=== PATIENT | male | born 1945 | race Caucasian/White ===

== ENCOUNTER → 2018-05-18 | Outpatient (CLI) | payer MEDICARE ==
--- NOTE | 2018-05-18 12:19 | REP ---
Chest two views HISTORY: Cough Comparison: None The lungs are clear. The heart is normal in size. The pulmonary vasculature is normal in appearance. Degenerative change is present in the thoracic spine. IMPRESSION: No acute disease. Electronically Signed by Neal Benjamin MD 05/18/2018 12:10 P
== END ==
LOC: M LRY 11:36
PROVIDERS: ATTEND Physician Assistant
DX: R05 Cough (principal)
CPT/HCPCS: 71046; G0463

== ENCOUNTER → 2018-08-30 | Outpatient (REF) | payer MEDICARE ==
[2018-08-30 19:21] LABS: ALBUMIN 3.9 GM/DL (3.2-5.2); ALT/SGPT 23 U/L (12-78); BASO # 0.1 10^3/uL (0.0-0.2); BASO % 0.7 % (0.0-1.0); BILIRUBIN,TOTAL 0.5 MG/DL (0.2-1.0); BLOOD UREA NITROGEN 23 MG/DL (7-18); CARBON DIOXIDE LEVEL 27 MEQ/L (21-32); CHLORIDE LEVEL 106 MEQ/L (98-107); EOS # 0.2 10^3/uL (0.0-0.50); EOS % 2.8 % (0.0-3.0); GLOMERULAR FILTRATION RATE > 60.0 (>42); GLUCOSE, FASTING 93 MG/DL (70-100); HEMATOCRIT 40.4 % (42.0-52.0); HEMOGLOBIN 13.3 g/dl (13.5-17.5); LYMPH # 1.5 10^3/uL (1.5-4.5); LYMPH % 19.9 % (24.0-44.0); MEAN CORPUSCULAR HEMOGLOBIN 31.8 pg (27.0-33.0); MEAN CORPUSCULAR HGB CONC 32.9 g/dl (32.0-36.5); MEAN CORPUSCULAR VOLUME 96.7 fl (80.0-96.0); MONO # 1.1 10^3/uL (0.0-0.8); MONO % 14.3 % (0.0-5.0); NEUTROPHILS # 4.6 10^3/uL (1.8-7.7); PLATELET COUNT, AUTOMATED 229 10^3/uL (150-450); POTASSIUM SERUM 3.9 MEQ/L (3.5-5.1); RED BLOOD COUNT 4.18 10^6/uL (4.30-6.10); SODIUM LEVEL 141 MEQ/L (136-145); TOTAL PROTEIN 7.1 GM/DL (6.4-8.2); WHITE BLOOD COUNT 7.5 10^3/uL (4.0-10.0)
[2018-09-02 00:06] LABS: Lyme Disease IgG/IgM Antibodie <0.91 ISR (0.00-0.90); Lyme Disease IgM Ab Quantitati <0.80 index (0.00-0.79)
== END ==
LOC: M SFHCLERA 10:59
PROVIDERS: ATTEND Physician Assistant
DX: R19.7 Diarrhea, unspecified (principal); S30.860A Insect bite (nonvenomous) of lower back and pelvis, initial encounter; W57.XXXA Bitten or stung by nonvenomous insect and other nonvenomous arthropods, initial encounter; R21 Rash and other nonspecific skin eruption
CPT/HCPCS: 80053; 81002; 85025; 86617; G0463

== ENCOUNTER → 2018-08-31 | Outpatient (REF) | payer MEDICARE | LOC: M SFHCLUC 11:37 | PROVIDERS: ATTEND Physician Assistant | DX: R19.7 Diarrhea, unspecified (principal) ==

== ENCOUNTER → 2020-04-29 | Outpatient (CLI) | payer MEDICARE ==
[~2020-04-29] MED LIST: ASPI81TA26 PO; CLAR10CA3 PO; FLON1SPR NARES; FOLI1TAB11; IRBE150T14; MAPA500T2 PO; METH2.5T48; PANT40TA29; SYST1SOL4 OP
== END ==
LOC: M LABSMTC 11:58
PROVIDERS: ATTEND Anesthesiology
DX: Z01.812 Encounter for preprocedural laboratory examination (principal); Z20.822 Contact with and (suspected) exposure to COVID-19

== ENCOUNTER 2020-05-04 11:24 | Day surgery (SDC) | payer MEDICARE ==
[~2020-05-04] VITALS: Ht 167.6 cm; Wt 95.3 kg
[~2020-05-04 11:24] MED LIST changes: +OFLOXACIN 0.3 % (OCUFLOX) OPTH SOL 5ML OD ONE; +PHENYLEPHRINE 2.5% OPHTH SOL 2ML OD ONE; +PROPARACAINE 0.5% OPHTH SOL 15ML OD ONE; +TROPICAMIDE 1% OPHTH SOLN 2ML OD ONE
[2020-05-04] MEDS ORDERED: CEFUROXIME 1MG/0.1ML INTRACAMERAL INJ As Ordered ONE (11:25)
[2020-05-04] MEDS ORDERED: MIDAZOLAM INJ 2MG/2ML VIAL (J2250 PER 1MG) As Ordered ONE (12:07)
[2020-05-04] MEDS ORDERED: fentaNYL 100 MCG/2 ML INJECTION (J3010) As Ordered ONE (12:07)
[2020-05-04] MEDS ORDERED: DUOVISC (0.50ML VISCOAT/0.55ML PROVISC) OPHTH KIT As Ordered ONE (12:20)
[2020-05-04] MEDS ORDERED: POVIDONE-IODINE 5% OPHTH PREP SOL 30ML As Ordered ONE (12:30)
[2020-05-04] MEDS ORDERED: BSS IRR 500ML/OMIDRIA 4ML IRR BAG (OR ONLY) As Ordered ONE (12:30)
[2020-05-04 12:41] VITALS: BP 127/63
--- NOTE | 2020-05-06 10:23 | RO ---
OPERATIVE NOTE DATE OF OPERATION: 05/04/2020 PREOPERATIVE DIAGNOSIS: 1. Visually significant nuclear sclerotic cataract, right eye. POSTOPERATIVE DIAGNOSIS: 1. Visually significant nuclear sclerotic cataract, right eye. PROCEDURE: 1. Cataract extraction with use of phacoemulsification, and placement of intraocular lens, AU00T0, D 19.0, right eye. SURGEON: Kang Cloud DO ANESTHESIA: Local (Omidria with MAC) COMPLICATIONS: None POSTOPERATIVE CONDITION: Stable INDICATIONS FOR SURGERY: 1. Blurred vision affecting patient's activities of daily living. DESCRIPTION OF PROCEDURE: The patient was seen in the preoperative area and properly identified. The correct operative eye was identified and marked. The patient received topical anesthetic, antibiotics, and topical dilating drops. The patient was then transferred to the operating room. The correct side was re-identified and a time-out was performed. The eye was prepped and draped in a sterile fashion. The eyelids were isolated with Tegaderm tape and the lids were held open with an adjustable speculum. A 1.0mm paracentesis incision was made. Omidria was then injected into the anterior chamber. Viscoelastic was then injected into the anterior chamber through the paracentesis. Using a 2.4mm sharp-tipped keratome, the anterior chamber was entered via a temporal clear cornea incision. A continuous curvilinear capsulorrhexis was created with Utrata forceps. Hydrodissection was performed with BSS on a blunt cannula until the nucleus was able to rotate freely. The crystalline lens was phacoemulsified and aspirated. Irrigation/aspiration was used to remove the cortical material Cohesive viscoelastic was placed into the capsular bag to deepen it. The implant was placed into the capsular bag and allowed to unfold. Placement was confirmed by visualizing the anterior capsulorrhexis. Irrigation/aspiration was used to remove the viscoelastic. The clear corneal incision was hydrated with BSS on a blunt cannula. The lens was well positioned. Intracameral antibiotic was injected into the anterior chamber. The incisions were then tested for leaks and found to be negative. The eye was then palpated for appropriate pressure and adjusted accordingly with BSS. The eyelid speculum was then carefully removed. A shield was placed over the eye. The patient tolerated the procedure well and was discharge to the recovery unit in a stable condition.
== END 2020-05-04 13:00 | disposition home or self-care (01) ==
LOC: M SDC 11:24
PROVIDERS: ATTEND Ophthalmology
DX: H25.11 Age-related nuclear cataract, right eye (principal); I10 Essential (primary) hypertension; K21.9 Gastro-esophageal reflux disease without esophagitis; Z86.73 Personal history of transient ischemic attack (TIA), and cerebral infarction without residual deficits; Z79.82 Long term (current) use of aspirin; Z79.899 Other long term (current) drug therapy
CPT/HCPCS: 66984; J1097; J2250; J3010; V2632

== ENCOUNTER → 2020-05-06 | Outpatient (CLI) | payer MEDICARE ==
[~2020-05-06] MED LIST changes: -OFLOXACIN 0.3 % (OCUFLOX) OPTH SOL 5ML OD ONE; -PHENYLEPHRINE 2.5% OPHTH SOL 2ML OD ONE; -PROPARACAINE 0.5% OPHTH SOL 15ML OD ONE; -TROPICAMIDE 1% OPHTH SOLN 2ML OD ONE
== END ==
LOC: M LABSMTC 09:28
PROVIDERS: ATTEND Anesthesiology
DX: Z01.812 Encounter for preprocedural laboratory examination (principal); Z20.822 Contact with and (suspected) exposure to COVID-19

== ENCOUNTER 2020-05-11 10:19 | Day surgery (SDC) | payer MEDICARE ==
[~2020-05-11] VITALS: Ht 167.6 cm; Wt 95.3 kg
[~2020-05-11 10:19] MED LIST changes: +CEFUROXIME 1MG/0.1ML INTRACAMERAL INJ As Ordered ONE; +DUOVISC (0.50ML VISCOAT/0.55ML PROVISC) OPHTH KIT As Ordered ONE; +LIDOCAINE 1% MDV 20ML VIAL SQ PRN; +OFLOXACIN 0.3 % (OCUFLOX) OPTH SOL 5ML OS ONE; +PHENYLEPHRINE 2.5% OPHTH SOL 2ML OS ONE; +POVIDONE-IODINE 5% OPHTH PREP SOL 30ML As Ordered ONE; +PROPARACAINE 0.5% OPHTH SOL 15ML OS ONE; +TROPICAMIDE 1% OPHTH SOLN 2ML OS ONE
--- OUTSIDE RECORDS SUMMARY | 2020-05-11 10:22 | CCD ---
Author Author Javi Deleon MD [facility] Organization Javi Deleon MD [facility] Address [address] [place] [phone] Phone Care Team Providers Care Arts Education Teacher Name Role Phone Eugene Guallpa MD PP [phone] Pedro Luis DO, Kang Unavailable [phone] Reason for Referral No Reason for Referral Recorded Problems Includes: Active, inactive, and resolved Problems All Visits Onset Date - Time Resolved Date - Time Provider Co ndition Status Pseudophakia 05/06/2020 - 12:00AM Kang Cloud DO Active Macular Degeneration Nonexudative Bilateral Early Dry Stage 04/07/2020 - 12:00AM Kang Cloud DO Active Cataract Senile Cortical 04/07/2020 - 12:00AM Kang Cloud DO Active Essential Hypertension 04/07/2020 - 12:00AM Kang serrano DO Active Dry Eye Syndrome 04/07/2020 - 12:00AM Kang sanchez DO Active Vitreous Disorders Degeneration 04/07/2020 - 12:00AM Urmila Cloud DO Active Plan of Treatment Pending Tests Order Diagnosis Results Due Ordering Provi cate Testing Ordered - AScan A-Scan IOL Master Cortical age-rel ated cataract, bilateral 06/06/20 Kang Cloud DO Future Appointments Date Time Location Provider Extracapsular cataract removal w/IOL implant 05/11/2020 8:3 0AM [facility] Kang Cloud DO 1 Week Post OP 05/19/2020 1:10PM Javi Deleon MD [facility] Urmila Cloud DO Assessments Includes: Assessments for all patient encounters Findings Encounter Date Cortical senile cataract POST OP VISIT WITH PRE-OP with Florencio Cloud DO 05/06/2020 Pseudophakia POST OP VISIT WITH PRE-OP with Kang yanes DO 05/06/2020 Cortical senile cataract 1 WK PREOP FOR SURGERY with Kang Cloud DO 04/24/2020 Cortical senile cataract NEW PATIENT WITH REFERRAL with Florencio Cloud DO 04/07/2020 Dry eye syndrome NEW PATIENT WITH REFERRAL with Kang yanes DO 04/07/2020 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 oth eyes NEW PATIENT WITH REFERRAL with Kang Cloud DO 04/07/2020 Essential hypertension NEW PATIENT WITH REFERRAL with Christinabee lynne Cloud DO 04/07/2020 Vitreous degeneration NEW PATIENT WITH REFERRAL with Kang Cloud DO 04/07/2020 Instructions Instructions not supported for this document typeNo Instructions Recorded Medical Equipment - Implanted Devices Includes: Current and historical DevicesNo Medical Equipment Recorded Medications Includes: Current and historical Medications Current Medications (continue as prescribed) Moxifloxacin HCl 0.5% Ophthalmic Solution 05/06/2020 Provider: Kang Cloud DO Diagnosis: Cortical age-related cataract, left eye Three days prior to surgery start one drop four times a day in the left eye Inveltys 1% Ophthalmic Suspension 05/06/2020 Provid er: Kang Cloud DO Diagnosis: Cortical age-related cataract, left eye Day of surgery remove patch start one dr op two times a day in the left eye, RUN CARD. SEE PHARM NOTES BromSite 0.075% Ophthalmic Solution 05/06/2020 Prov ider: Kang Cloud DO Diagnosis: Cortical age-related cataract, left eye Three days prior to surgery start one dr op two times a day in the left eye, RUN CARD. SEE PHARM NOTES Tylenol 500 MG Oral Capsule 04/07/2020 Provider: Diagnosis: Daily Multivitamin Oral Capsule 04/07/2020 Provider : Diagnosis: GNP Loratadine 10 MG Oral Tablet 04/07/2020 Provide r: Diagnosis: Adult Aspirin EC Low Strength 81 MG Oral Tablet Delayed Rele ase 04/07/2020 Provider: Diagnosis: Irbesartan-hydroCHLOROthiazide 150-12.5 MG Oral Tablet 04/07 Provider: Diagnosis: Pantoprazole 40 MG Oral Tablet 04/07/2020 Provider: Diagnosis: Folic Acid 1 MG Oral Tablet 04/07/2020 Provider: Diagnosis: Methotrexate 2.5 MG Oral Tablet 04/07/2020 Provider : Diagnosis: 6 pills per week Past Medications on file Inveltys 1% Ophthalmic Suspension 04/24/2020 - 05/06/2020 Pr ovider: Kang Cloud DO Diagnosis: Cortical age-related cataract, right eye Day of surgery remove patch start one dr op two times a day in the right eye, RUN CARD. SEE PHARM NOTES BromSite 0.075% Ophthalmic Solution 04/24/2020 - 05/06/2020 Provider: Kang Cloud DO Diagnosis: Cortical age-related cataract, right eye Three days prior to surgery start one dr op two times a day in the right eye, RUN CARD. SEE PHARM NOTES Moxifloxacin HCl 0.5% Ophthalmic Solution 04/24/2020 - 05/06 Provider: Kang Cloud DO Diagnosis: Cortical age-related cataract, right eye Three days prior to surgery start one drop four times a day in the right eye Tylenol 500 MG Oral Capsule 04/07/2020 - 04/07/2020 Provider : Diagnosis: Medications Administered Includes: Administered Medications in patient's chartNo Administered Medications Recorded Vital Signs Includes: Vital Signs from 05/06/2019 through 05/06/2020No Vital Signs Recorded For Specified Dates Results Includes: Results from 05/06/2019 through 05/06/2020No Results Recorded For Specified Dates History of Present Illness History of Present Illness not supported for this document typeNo History of Present Illness Recorded Social History Description Last Updated Not a current smoker 05/06/2020 Not using drugs 05/06/2020 Smoking status : Never smoker 05/06/2020 Alcohol use occasionally 04/07/2020 No tobacco use 04/07/2020 Tobacco non-user 04/07/2020 Procedures and Surgical History Includes: Procedures from 05/06/2019 through 05/06/2020 Procedures Code Diagnosis Performing Provider Service Location Service Date Ophthalmic biometry - IOL Master with IOL calculation (26, L T) 37957 Cortical age-related cataract, left eye Kang Cloud DO 05/06/19 21 Intermediate Eye Exam Established Patient (Signi/Sep Eval. & Man.) 20662 Cortical age-related cataract, right eye Kang Pedro Luis Hassan MD [facility] 04/24/2020 Ophthalmic biometry - IOL Master with IO L calculation (Right Side, WAIVER OF LIABILITY ON FILE (ABN)) [id number] Cortical age-related cataract, righ t eye Kang Hills MD [facility] 04/24/2020 Medical Eye Exam [id number] Cortical age-related cataract, bilateral, Nexdtve age- related mclr degn, bilateral, early dry stage, Essential (primary) hypertension Kang Hills MD [facility] 04/07/2020 Surgical History Last Updated History of cataract extraction PCIOL OD by Dr. Jovanny castro 05/04/2020 05/06/2020 Surgical / procedural history left Rota tor Cuff and left Bicep Tendon left 2015, Lump Removal side 1989, 2015 Lump Removal Neck 1995, Vasectomy, Tonsillectomy, Dental Implant 04/07/2020 Medical History Includes: Medical History in patient's chart Description Last Updated Recent change in medical history PCIOL OD by Dr. Min piedra 05/04/2020 05/06/2020 History of essential hypertension 04/07/2020 History of arthritis 04/07/2020 History of hypertension 04/07/2020 Reported medical history TIA 2005, 04/07/2020 Family History Includes: Family History in patient's chart Description Last Updated Maternal history of arthritis 05/06/2020 Maternal history of cataract 05/06/2020 Maternal history of hypertension 05/06/2020 Paternal history of heart disease 05/06/2020 Review of Systems Review of Systems not supported for this document typeNo Review of Systems Recorded Mental Status Mental Status not supported for this document type Description Oriented to time, place, and person Functional Status Functional Status not supported for this document typeNo Functional Status Recorded Physical Exam Physical Exam not supported for this document typeNo Physical Exam Recorded Immunizations Includes: Immunizations in patient's chartNo Immunizations Recorded Allergies Includes: Active, inactive, and resolved AllergiesNo Known Allergies Encounters Includes: Encounters from 05/06/2019 through 05/06/2020 Encounter Provider Location Date Check-In Time Check-Out Time D iagnosis POST OP VISIT WITH PRE-OP Kang Hills MD [facility] 05/06/2020 8:01AM 8:57AM Pseudophakia, Catara ct Senile Cortical Extracapsular cataract removal w/IOL implant Kang Bartlett in [facility] 05/04/2020 04/24/2020 11:30AM 6:59AM 1 WK PREOP FOR SURGERY Kang Hills MD [facility] 04/24/2020 8:09AM 9:22AM Cataract Senile Cortical NEW PATIENT WITH REFERRAL Kang Hills MD [facility] 04/07/2020 12:18PM 1:44PM Dry Eye Syndrome, Ca taract Senile Cortical, Vitreous Disorders Degeneration, Macular Degeneration Nonexudative Bilateral Early Dry Stage, Essential Hypertension Insurance Includes: Active Insurance Policies Plan Name Member ID Group # Subscriber Relationship Effective Da connie 1 - Medicare Part B [facility] ([facility]) [id number] Carl Bustamante 11/25/2010 - Unknown 2 - [facility] [id number] Carl Bustamante Advance Directives Includes: Current Advance DirectivesNo Advance Directives Recorded Health Concerns Includes: Active Health ConcernsNo Active Health Concerns Recorded Goals Includes: Active GoalsNo Active Goals Recorded Interventions Includes: Interventions for active GoalsNo Interventions Recorded Evaluations & Outcomes Includes: Evaluations & Outcomes for active GoalsNo Outcomes Recorded
--- OUTSIDE RECORDS SUMMARY | 2020-05-11 10:23 | CCD ---
Author Author Javi Deleon MD [facility] Organization Javi Deleon MD [facility] Address [address] [place] [phone] Phone Care Team Providers Care Construction Representative Name Role Phone Eugene Guallpa MD PP [phone] Pedro Luis DO, Kang Unavailable [phone] Reason for Referral No Reason for Referral Recorded Problems Includes: Active, inactive, and resolved Problems All Visits Onset Date - Time Resolved Date - Time Provider Co ndition Status Macular Degeneration Nonexudative Bilateral Early Dry Stage [...] DO Future Appointments Date Time Location Provider POST OP VISIT WITH PRE-OP 05/06/2020 8:20AM Javi batista MD [facility] Kang Cloud DO Extracapsular cataract removal w/IOL implant 05/11/2020 8:[address] [facility] Kagn Cloud DO 1 Week Post OP 05/19/2020 1:10PM Javi Deleon MD [facility] Urmila Cloud DO Assessments Includes: Assessments for all patient encounters Findings Encounter Date Cortical senile cataract 1 WK PREOP FOR SURGERY with Kang Cloud DO 04/24/2020 Cortical senile cataract NEW PATIENT WITH REFERRAL with Florencio Cloud DO 04/07/2020 Dry eye syndrome NEW PATIENT WITH REFERRAL with Kang yanes DO 04/07/2020 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 oth eyes NEW PATIENT WITH REFERRAL with Kang Cloud DO 04/07/2020 Essential hypertension NEW PATIENT WITH REFERRAL with Neal Cloud DO 04/07/2020 Vitreous degeneration NEW PATIENT WITH REFERRAL with Kang Cloud DO 04/07/2020 Instructions Instructions not supported for this document typeNo Instructions Recorded Medical Equipment - Implanted Devices Includes: Current and historical DevicesNo Medical Equipment Recorded Medications Includes: Current and historical Medications Current Medications (continue as prescribed) Inveltys 1% Ophthalmic Suspension 04/24/2020 Provid er: Kang Cloud DO Diagnosis: Cortical age-related cataract, right eye Day of surgery remove patch start one dr op two times a day in the right eye, RUN CARD. SEE PHARM NOTES BromSite 0.075% Ophthalmic Solution 04/24/2020 Prov ider: Kang Cloud DO Diagnosis: Cortical age-related cataract, right eye Three days prior to surgery start one dr op two times a day in the right eye, RUN CARD. SEE PHARM NOTES Moxifloxacin HCl 0.5% Ophthalmic Solution 04/24/2020 Provider: Kang Cloud DO Diagnosis: Cortical age-related cataract, right eye Three days prior to surgery start one drop four times a day in the right eye Irbesartan-hydroCHLOROthiazide 150-12.5 MG Oral Tablet 04/07 Provider: Diagnosis: Adult Aspirin EC Low Strength 81 MG Oral Tablet Delayed Rele ase 04/07/2020 Provider: Diagnosis: GNP Loratadine 10 MG Oral Tablet 04/07/2020 Provide r: Diagnosis: Tylenol 500 MG Oral Capsule 04/07/2020 Provider: Diagnosis: Daily Multivitamin Oral Capsule 04/07/2020 Provider : Diagnosis: Pantoprazole 40 MG Oral Tablet 04/07/2020 Provider: Diagnosis: Folic Acid 1 MG Oral Tablet 04/07/2020 Provider: Diagnosis: Methotrexate 2.5 MG Oral Tablet 04/07/2020 Provider : Diagnosis: 6 pills per week Past Medications on file Tylenol 500 MG Oral Capsule 04/07/2020 - 04/07/2020 Provider : Diagnosis: Medications Administered Includes: Administered Medications in patient's chartNo Administered Medications Recorded Vital Signs Includes: Vital Signs from 05/05/2019 through 05/05/2020No Vital Signs Recorded For Specified Dates Results Includes: Results from 05/05/2019 through 05/05/2020No Results Recorded For Specified Dates History of Present Illness History of Present Illness not supported for this document typeNo History of Present Illness Recorded Social History Description Last Updated Alcohol use occasionally 04/07/2020 No tobacco use 04/07/2020 Not a current smoker 04/07/2020 Not using drugs 04/07/2020 Smoking status : Never smoker 04/07/2020 Tobacco non-user 04/07/2020 Procedures and Surgical History Includes: Procedures from 05/05/2019 through 05/05/2020 Procedures Code Diagnosis Performing Provider Service Location Service Date Intermediate Eye Exam Established Patient (Signi/Sep Eval. & Man.) 89698 Cortical age-related cataract, right eye Kang Hassan MD [facility] 04/24/2020 Ophthalmic biometry - IOL Master with IO L calculation (Right Side, WAIVER OF LIABILITY ON FILE (ABN)) 44301 Cortical age-related cataract, righ t eye Kang Hills MD [facility] 04/24/2020 Medical Eye Exam [id number] Cortical age-related cataract, bilateral, Nexdtve age- related mclr degn, bilateral, early dry stage, Essential (primary) hypertension Kang Hills MD [facility] 04/07/2020 Surgical History Last Updated Surgical / procedural history left Rota tor Cuff and left Bicep Tendon left 2015, Lump Removal side 1989, 2015 Lump Removal Neck 1996, Vasectomy, Tonsillectomy, Dental Implant 04/07/2020 Medical History Includes: Medical History in patient's chart Description Last Updated History of essential hypertension 04/07/2020 History of arthritis 04/07/2020 History of hypertension 04/07/2020 Reported medical history TIA 2005, 04/07/2020 Family History Includes: Family History in patient's chart Description Last Updated Maternal history of arthritis 04/07/2020 Maternal history of cataract 04/07/2020 Maternal history of hypertension 04/07/2020 Paternal history of heart disease 04/07/2020 Review of Systems Review of Systems not supported for this document typeNo Review of Systems Recorded Mental Status Mental Status not supported for this document typeNo Mental Status Recorded Functional Status Functional Status not supported for this document typeNo Functional Status Recorded Physical Exam Physical Exam not supported for this document typeNo Physical Exam Recorded Immunizations Includes: Immunizations in patient's chartNo Immunizations Recorded Allergies Includes: Active, inactive, and resolved AllergiesNo Known Allergies Encounters Includes: Encounters from 05/05/2019 through 05/05/2020 Encounter Provider Location Date Check-In Time Check-Out Time D iagnosis Extracapsular cataract removal w/IOL implant Kang Bartlett in [facility] 05/04/2020 04/24/2020 11:30AM 6:59AM 1 WK PREOP FOR SURGERY Kang Hills MD [facility] 04/24/2020 8:09AM 9:22AM Cataract Senile Cortical NEW PATIENT WITH REFERRAL Kang Hills MD [facility] 04/07/2020 12:18PM 1:44PM Dry Eye Syndrome, Ca taract Senile Cortical, Vitreous Disorders Degeneration, Macular Degeneration Nonexudative Bilateral Early Dry Stage, Essential Hypertension Insurance Includes: Active Insurance Policies Plan Name Member ID Group # Subscriber Relationship Effective Da connie 1 - Medicare Part B [facility] ([facility]) [id number] Carl Bustamante 11/25/2010 - Unknown 2 - [facility] [id number] Carl Bustamante Advance Directives Includes: Current Advance DirectivesNo Advance Directives Recorded Health Concerns Includes: Active Health ConcernsNo Active Health Concerns Recorded Goals Includes: Active GoalsNo Active Goals Recorded Interventions Includes: Interventions for active GoalsNo Interventions Recorded Evaluations & Outcomes Includes: Evaluations & Outcomes for active GoalsNo Outcomes Recorded
--- OUTSIDE RECORDS SUMMARY | 2020-05-11 10:23 | CCD ---
Author Author [facility] Address Unknown Phone Unavailable Care Team Providers Care Licensed Mortician Name Role Phone Micah, [phone] MD Campos CHAWLA Unavailable Micah, [id number] MD Campos CHAWLA Unavailable Micah, [id number] MD Campos CHAWLA Unavailable Micah, [phone] MD Campos CHAWLA Unavailable Micah, [id number] MD Campso CHAWLA Unavailable Micah, [id number] MD Campos CHAWLA Unavailable Micah, [id number] MD Campos CHAWLA Unavailable Micah, [id number] MD Campos CHAWLA Unavailable Micah, [phone] MD Campos CHAWLA Unavailable Micah, [id number] MD Campos CHAWLA Unavailable Micah, [id number] MD Campos CHAWLA Unavailable Micah, [phone] MD Campos CHAWLA Unavailable Micah, [id number] MD Campos MD Unavailable Micah, [id number] MD Campos MD Unavailable Micah, [id number] MD Campos MD Unavailable Micah, [phone] MD Campos MD Unavailable Micah, [id number] MD Campos MD Unavailable Micah, [id number] MD Campos MD Unavailable Micah, [id number] MD Campos MD Unavailable Micah, [id number] MD Campos MD Unavailable Micah, [id number] MD Campos MD Unavailable Micah, [id number] MD Campos MD Unavailable Micah, [phone] MD Campos MD Unavailable Micah, [id number] MD Campos MD Unavailable Micah, [id number] MD Campos MD Unavailable Micah, [id number] MD Campos MD Unavailable Micah, [id number] MD Campos MD Unavailable Micah, [id number] MD Campos MD Unavailable Micah, [id number] MD Campos MD Unavailable Micah, [id number] MD Campos MD Unavailable Micah, [id number] MD Campos MD Unavailable Micah, [id number] MD Campos MD Unavailable Micah, [id number] MD Campos MD Unavailable Micah, [id number] MD Campos MD Unavailable Micah, [id number] MD Campos MD Unavailable Micah, [id number] MD Campos MD Unavailable Micah, [id number] MD Campos MD Unavailable Micah, [id number] MD Campos MD Unavailable Micah, [id number] MD Campos MD Unavailable Micah, [id number] MD Campos MD Unavailable Micah, [id number] MD Campos MD Unavailable Micah, [id number] MD Campos MD Unavailable Micah, [id number] MD Campos MD Unavailable Micah, [id number] MD Campos MD Unavailable Micah, [id number] MD Campos MD Unavailable Micah, [id number] MD Campos MD Unavailable Micah, [id number] MD Campos MD Unavailable Micah, [id number] MD Campos MD Unavailable Micah, [id number] MD Campos MD Unavailable Micah, [id number] MD Campos MD Unavailable Micah, [id number] MD Campos MD Unavailable Micah, [id number] MD Campos MD Unavailable Micah, [id number] MD Campos MD Unavailable Micah, [id number] MD Campos MD Unavailable Micah, [id number] MD Campos MD Unavailable Micah, [id number] MD Campos MD Unavailable Micah, [id number] Campos MD Unavailable Mciah, [id number] Campos MD Unavailable [phone] Micah, [id number] Campos MD Unavailable [phone] Micah, [id number] Campos MD Unavailable [phone] Micah, [id number] Campos MD Unavailable [phone] Micah, [id number] Campos MD Unavailable SHANNON, MAQBOOL FRED MD Unavailable Unavailable SHANNON, MAQBOOL FRED MD Unavailable Unavailable SHANNON, MAQBOOL FRED MD Unavailable Unavailable SHANNON, MAQBOOL FRED MD Unavailable Unavailable SHANNON, MAQBOOL FRED MD Unavailable Unavailable SHANNON, MAQBOOL FRED MD Unavailable Unavailable SHANNON, MAQBOOL FRED MD Unavailable Unavailable SHANNON, MAQBOOL FRED MD Unavailable Unavailable SHANNON, MAQBOOL FRED MD Unavailable Unavailable SHANNON, MAQBOOL FRED MD Unavailable Unavailable SHANNON, MAQBOOL FRED MD Unavailable Unavailable SHANNON, MAQBOOL FRED MD Unavailable Unavailable SHANNON, MAQBOOL FRED MD Unavailable Unavailable SHANNON, MAQBOOL FRED MD Unavailable Unavailable SHANNON, MAQBOOL FRED MD Unavailable Unavailable SHANNON, MAQBOOL FRED MD Unavailable Unavailable SHANNON, MAQBOOL FRED MD Unavailable Unavailable SHANNON, MAQBOOL FRED MD Unavailable Unavailable SHANNON, MAQBOOL FRED MD Unavailable Unavailable SHANNON, MAQBOOL FRED MD Unavailable Unavailable SHANNON, MAQBOOL FRED MD Unavailable Unavailable SHANNON, MAQBOOL FRED MD Unavailable Unavailable SHANNON, MAQBOOL FRED MD Unavailable Unavailable SHANNON, MAQBOOL FRED MD Unavailable Unavailable SHANNON, MAQBOOL FRED MD Unavailable Unavailable SHANNON, MAQBOOL FRED MD Unavailable Unavailable SHANNON, MAQBOOL FRED MD Unavailable Unavailable SHANNON, MAQBOOL FRED MD Unavailable Unavailable SHANNON, MAQBOOL FRED MD Unavailable Unavailable SHANNON, MAQBOOL FRED MD Unavailable Unavailable SHANNON, MAQBOOL FRED MD Unavailable Unavailable SHANNON, MAQBOOL FRED MD Unavailable Unavailable SHANNON, MAQBOOL FRED MD Unavailable Unavailable SHANNON, MAQBOOL FRED MD Unavailable Unavailable SHANNON, MAQBOOL FRED MD Unavailable Unavailable SHANNON, MAQBOOL FRED MD Unavailable Unavailable SHANNON, MAQBOOL FRED MD Unavailable Unavailable SHANNON, MAQBOOL FRED MD Unavailable Unavailable SHANNON, MAQBOOL FRED MD Unavailable Unavailable SHANNON, MAQBOOL FRED MD Unavailable Unavailable SHANNON, MAQBOOL FRED MD Unavailable Unavailable SHANNON, MAQBOOL FRED MD Unavailable Unavailable SHANNON, MAQBOOL FRED MD Unavailable Unavailable SHANNON, MAQBOOL FRED MD Unavailable Unavailable SHANNON, MAQBOOL FRED MD Unavailable Unavailable SHANNON, MAQBOOL FRED MD Unavailable Unavailable SHANNON, MAQBOOL FRED MD Unavailable Unavailable SHANNON, MAQBOOL FRED MD Unavailable Unavailable SHANNON, MAQBOOL FRED MD Unavailable Unavailable SHANNON, MAQBOOL FRED MD Unavailable Unavailable SHANNON, MAQBOOL FRED MD Unavailable Unavailable SHANNON, MAQBOOL FRED MD Unavailable Unavailable SHANNON, MAQBOOL FRED MD Unavailable Unavailable SHANNON, MAQBOOL FRED MD Unavailable Unavailable SHANNON, MAQBOOL FRED MD Unavailable Unavailable SHANNON, MAQBOOL FRED MD Unavailable Unavailable SHANNON, MAQBOOL FRED MD Unavailable Unavailable SHANNON, MAQBOOL FRED MD Unavailable Unavailable SHANNON, MAQBOOL FRED MD Unavailable Unavailable SHANNON, MAQBOOL FRED MD Unavailable Unavailable SHANNON, MAQBOOL FRED MD Unavailable Unavailable SHANNON, MAQBOOL FRED MD Unavailable Unavailable SHANNON, MAQBOOL FRED MD Unavailable Unavailable SHANNON, MAQBOOL FRED MD Unavailable Unavailable SHANNON, MAQBOOL FRED MD Unavailable Unavailable SHANNON, MAQBOOL FRED MD Unavailable Unavailable SHANNON, MAQBOOL FRED CHAWLA Unavailable Unavailable SHANNON, MAQBOOL FRED Unavailable Unavailable SHANNON, MAQBOOL FRED Unavailable Unavailable SHANNON, MAQBOOL FRED Unavailable Unavailable SHANNON, MAQBOOL FRED Unavailable Unavailable SHANNON, MAQBOOL FRED Unavailable Unavailable SHANNON, MAQBOOL FRED Unavailable Unavailable SHANNON, MAQBOOL FRED Unavailable Unavailable SHANNON, MAQBOOL FRED MD Unavailable Unavailable Celia CLOUDEW DO Unavailable [phone] Celia CLOUD DERRICK DO Unavailable [phone] Celia CLOUD DERRICK DO Unavailable [phone] Celia CLOUD DERRICK DO Unavailable [phone] Celia CLOUDEW DO Unavailable [phone] Celia CLOUDEW DO Unavailable [phone] Celia CLOUDEW DO Unavailable [phone] Celia CLOUDEW DO Unavailable [phone] Celia CLOUDEW DO Unavailable [phone] Celia CLOUDEW DO Unavailable [phone] Celia CLOUDEW DO Unavailable [phone] Celia CLOUDEW DO Unavailable [phone] Celia CLOUDEW DO Unavailable [phone] Celia CLOUD DERRICK DO Unavailable [phone] Celia CLOUDEW DO Unavailable [phone] Celia CLOUDEW DO Unavailable [phone] Celia CLOUDEW DO Unavailable [phone] Celia CLOUDEW DO Unavailable [phone] Celia CLOUDEW DO Unavailable [phone] Celia CLOUD DERRICK DO Unavailable [phone] Celia CLOUD DO [facility] [phone] Re-disclosure Warning The records that you are about to access may contain information from federally-assisted alcohol or drug abuse programs. If such information is present, then the following federally mandated warning applies: This information has been disclosed to you from records protected by federal confidentiality rules (42 CFR part 2). The federal rules prohibit you from making any further disclosure of this information unless further disclosure is expressly permitted by the written consent of the person to whom it pertains or as otherwise permitted by 42 CFR part 2. A general authorization for the release of medical or other information is NOT sufficient for this purpose. The Federal rules restrict any use of the information to criminally investigate or prosecute any alcohol or drug abuse patient.The records that you are about to access may contain highly sensitive health information, the redisclosure of which is protected by Article 27-F of the [facility] Public Health law. If you continue you may have access to information: Regarding HIV / AIDS; Provided by facilities licensed or operated by the [facility] Office of Mental Health; or Provided by the [facility] Office for People With Developmental Disabilities. If such information is present, then the following [facility] mandated warning applies: This information has been disclosed to you from confidential records which are protected by state law. State law prohibits you from making any further disclosure of this information without the specific written consent of the person to whom it pertains, or as otherwise permitted by law. Any unauthorized further disclosure in violation of state law may result in a fine or longterm sentence or both. A general authorization for the release of medical or other information is NOT sufficient authorization for further disc losure. Allergies and Adverse Reactions Type Description Substance Reaction Status Data Source(s ) Allergy to substance No Known Allergies No known allergies (situation ) [facility] (Javi Connolly [facility]) Allergy to substance No Known Allergies No known allergies (situation ) [facility] (Javi Connolly [facility]) No Known Drug Allergies No Known Drug Allergies [facility] Family History Family Member Name Family Member Gender Family Member Status Date o f Status Description Data Source(s) Unknown Male Problem MEDENT ([facility]) Unknown Female Problem [facility] ([facility]) Unknown Female Problem [facility]ENT ([facility]) Unknown Female Problem [facility] ([facility]) Encounters Encounter Providers Location Date Indications Data Source(s ) Outpatient<td ID="encounterTypeDescripti onID0">POST OP VISIT WITH PRE- OP</td><td>Derrick Cloud DO</td><td>Javi Deleon MD [facility]</td><td>05/06/2020</td><td>8:01AM</td><td>8:57AM</td><td><content ID="encounterDiagnosisID0-0">Pseudophakia</content>, <content ID="encounterDiagnosisID0-1">Cataract Senile Cortical</content></td> Attender: DERRICK Hills MD [facility] 05/06/2020 08:01:00 AM EST - 05/06/2020 08:57:00 AM EST PseudophakiaCataract Senile Cortical [facility] (Javi Connolly MD [facility]) Pseudophakia Cataract Senile Cortical Outpatient<td ID="encounterTypeDescripti onID1">Extracapsular cataract removal w/IOL implant</td><td>Derrick Cloud DO</td><td>[facility]</td><td>05/04/2020</td><td>04/24/2020 11:30AM</td> <td>6:59AM</td><td></td> Attender: DERRICK CLOUD DO [facility] 04/24/2020 11:30:00 AM EST - 05/04/2020 06:59:00 AM EST [facility] (Javi Connolly MD [facility]) Outpatient<td ID="encounterTypeDescripti onID2">1 WK PREOP FOR SURGERY</td><td>Derrick Cloud DO</td><td>Javi Deleon MD [facility]</td><td>04/24/2020</td><td>8:09AM</td><td>9:22AM</td><td><content ID="encounterDiagnosisID2-0">Cataract Senile Cortical</content></td> Attender: DERRICK Hills MD [facility] 04/24/2020 08:09:00 AM EST - 04/24/2020 09:22:00 AM EST Cataract Senile CorticalCataract Senile Cortical [facility] (Javi Connolly MD [facility]) Cataract Senile Cortical Cataract Senile Cortical Outpatient<td ID="encounterTypeDescripti onID3">NEW PATIENT WITH REFERRAL</td><td>Derrick Cloud DO</td><td>Javi Deleon MD [facility]</td><td>04/07/2020</td><td>12:18PM</td><td>1:44PM</td><td><content ID="encounterDiagnosisID3-0">Dry Eye Syndrome</content>, <content ID="encounterDiagnosisID3-1">Cataract Senile Cortical</content>, <content ID="encounterDiagnosisID3-2">Vitreous Disorders Degeneration</content>, <content ID="encounterDiagnosisID3-3">Macular Degeneration Nonexudative Bilateral Early Dry Stage</content>, <content ID="encounterDiagnosisID3-4">Essential Hypertension</content></td> Attender: DERRICK Hills MD [facility] 04/07/2020 12:18:00 PM EST - 04/07/2020 01:44:00 PM ES T Essential HypertensionMacular Degeneration Nonexudative Bilateral Early Dry StageVitreous Disorders DegenerationCataract Senile CorticalDry Eye SyndromeEssential HypertensionMacular Degeneration Nonexudative Bilateral Early Dry StageVitreous Disorders DegenerationCataract Senile CorticalDry Eye Syndrome [facility] (Javi Connolly MD [facility]) Essential Hypertension Macular Degeneration Nonexudative Bilate ral Early Dry Stage Vitreous Disorders Degeneration Cataract Senile Cortical Dry Eye Syndrome Essential Hypertension Macular Degeneration Nonexudative Bilate ral Early Dry Stage Vitreous Disorders Degeneration Cataract Senile Cortical Dry Eye Syndrome Outpatient Attender: [id number] Campos Obrien MDConsultant: STEPHIE ORTEGA MD 03/10/2020 11:05:00 AM EST - 03/10/2020 12:05:00 PM [facility] Outpatient Attender: [id number] Campos Obrien MD [facility] 02/03/2020 02:34:00 PM EST - 02/03/2020 02:35:00 PM EST [facility] Patient discharged. Outpatient Attender: [id number] Campos Obrien MDConsultant: STEPHIE ORTEGA MD 12/18/2019 09:08:00 AM EDT - 12/18/2019 10:08:00 AM EDT [facility] Outpatient Attender: [id number] Campos Obrien MDConsultant: STEPHIE ORTEGA MD 12/10/2019 09:25:00 AM EDT - 12/10/2019 10:25:00 AM EDT [facility] Outpatient Attender: [id number] Campos Obrien MDConsultant: STEPHIE ORTEGA MD 09/09/2019 10:05:00 AM EDT - 09/09/2019 11:05:00 AM EDT [facility] Outpatient Attender: [id number] Campos Obrien MD [facility] 07/24/2019 09:17:00 AM EDT - 07/24/2019 09:18:00 AM EDT [facility] Patient discharged. Outpatient Attender: [id number] Campos Obrien MDConsultant: STEPHIE ORTEGA MD 05/02/2019 10:40:00 AM EST - 05/02/2019 11:40:00 AM EST [facility] Medications Medication Brand Name Start Date Product Form Dose Route Admi nistrative Instructions Pharmacy Instructions Status Indications Reaction Description Data Source(s) BromSite 0.075% Ophthalmic Solution BromSite 0.075% Ophthalm ic Solution 05/06/2020 12:00:00 AM EST active bromfenac 0.75 MG/ML Ophthalmic Solution [Bromsite] [facility] (Javi Connolly [facility]) Inveltys 1% Ophthalmic Suspension Inveltys 1% Ophthalmic Jayna pension 05/06/2020 12:00:00 AM EST active loteprednol etabonate 10 MG/ML Ophthalmic Suspension [Inveltys] [facility] (Javi Connolly MD [facility]) moxifloxacin 5 MG/ML Ophthalmic Solution Moxifloxacin HCl 0.5% Ophthalmic Solution Moxifloxacin HCl 0.5% Ophthalmic Solution 05/06/2020 12:00:00 AM EST active moxifloxacin 5 MG/ML Oph thalmic Solution [facility] (Javi Connolly MD [facility]) moxifloxacin 5 MG/ML Ophthalmic Solution Moxifloxacin HCl 0.5% Ophthalmic Solution Moxifloxacin HCl 0.5% Ophthalmic Solution 04/24/2020 12:00:00 AM EST aborted moxifloxacin 5 MG/ML Oph thalmic Solution [facility] (Javi Connolly MD [facility]) BromSite 0.075% Ophthalmic Solution BromSite 0.075% Ophthalm ic Solution 04/24/2020 12:00:00 AM EST aborted bromfenac 0.75 MG/ML Ophthalmic Solution [Bromsite] [facility] (Javi Connolly MD [facility]) Inveltys 1% Ophthalmic Suspension Inveltys 1% Ophthalmic Jayna pension 04/24/2020 12:00:00 AM EST aborted loteprednol etabonate 10 MG/ML Ophthalmic Suspension [Inveltys] [facility] (Javi Connolly MD [facility]) Tylenol 500 MG Oral Capsule Tylenol 500 MG Oral Capsule 03/27 12:00:00 AM EST aborted Tylenol [facility] (Javi Connolly MD [facility]) GNP Loratadine 10 MG Oral Tablet GNP Loratadine 10 MG Oral T ablet 04/07/2020 12:00:00 AM EST 1 active GNP Chelsey tadine [facility] (Javi Connolly MD [facility]) Aspirin 81 MG Delayed Release Oral Table t Adult Aspirin EC Low Strength 81 MG Oral Tablet Delayed Release Adult Aspirin EC Low Strength 81 MG Oral Tablet Delayed Release 04/07/2020 12:00:00 AM EST 1 ac tive aspirin 81 MG Delayed Release Oral Tablet [facility] (Javi Connolly MD [facility]) Tylenol 500 MG Oral Capsule Tylenol 500 MG Oral Capsule 03/27 12:00:00 AM EST 1 active Tylenol [facility] (Javi Connolly MD [facility]) Daily Multivitamin Oral Capsule Daily Multivitamin Oral Caps ule 04/07/2020 12:00:00 AM EST 1 active Daily Mu ltivitamin [facility] (Javi Connolly MD [facility]) Methotrexate 2.5 MG Oral Tablet Methotrexate 2.5 MG Oral Tab let 04/07/2020 12:00:00 AM EST active methotre xate 2.5 MG Oral Tablet [facility] (Javi Connolly MD [facility]) Folic Acid 1 MG Oral Tablet Folic Acid 1 MG Oral Tablet 03/27 12:00:00 AM EST 1 active folic acid 1 MG O ral Tablet [facility] (Javi Connolly MD [facility]) Pantoprazole 40 MG Oral Tablet Pantoprazole 40 MG Oral Table t 04/07/2020 12:00:00 AM EST 1 active Pantopra zole [facility] (Javi Connolly MD [facility]) Hydrochlorothiazide 12.5 MG / irbesartan 150 MG Oral Tablet Irbesartan- hydroCHLOROthiazide 150-12.5 MG Oral Tablet Irbesartan-hydroCHLOROthiazide 150- 12.5 MG Oral Tablet 04/07/2020 12:00:00 AM EST 1 active hydrochlorothiazide 12.5 MG / irbesartan 150 MG Oral Tablet [facility] (Javi Connolly MD [facility]) Insurance Providers Payer name Policy type / Coverage type Policy ID Covered libertarian ID Covered libertarian's relationship to malin Policy Malin Plan Information [facility] OPTIONS [id number] SP [id number] MEDICARE [id number] SP [id number] Medicare Part B [facility] 0 Se lf 0 AARP HEALTH CARE OPTIONS . SP . AAR HEALTH CARE OPTIONS [id number] SP [id number] Medicare Part B [facility] 0 Se lf 0 AAR HE[employer] CARE OPTIONS [id number] S [id number] MEDICARE [id number] S [id number] MEDICARE PART A -O/P [id number] 18 [id number] AAR HEALTH CARE OPTIONS-O/P [id number] 18 [id number] MEDICARE PART A [facility] [id number] 18 [id number] AAR HEALTH CARE OPTIONS [id number] 18 [id number] ANSI-Commercial [id number] ANSI-Medicare Part B [id number] ANSI-Commercial [id number] ANSI-Medicare Part B [id number] ANSI-Commercial [id number] ANSI-Medicare Part B [id number] ANSI-Medicare Part B [id number] ANSI-Commercial [id number] ANSI-Medicare Part B [id number] ANSI-Commercial [id number] MEDICARE PART A -O/P [id number] 18 [id number] MEDICARE PART A -O/P [id number] 18 [id number] MEDICARE PART A -O/P [id number] 18 [id number] AARP O [id number] S [id number] MEDICARE C [id number] S [id number] A [facility] Health Care Options Medigap Part B [id number] Self [id number] Medicare Part A [place] Medicare Primary [id number] Self [id number] MEDICARE PART A [facility] [id number] 18 [id number] AAR HEALTH CARE OPTIONS -CLINIC [id number] 18 [id number] MEDICARE PART A -CLINIC [id number] 18 [id number] Aar Healthcare Options Medigap Part B [id number] Self [id number] [place] Primary [id number] Self [id number] MEDICARE -RECURRING [id number] 18 [id number] Aar Healthcare Options Medigap Part B Self Medicare [facility] Medicare Primary Self MEDICARE PART A -O/P [id number] 18 [id number] MEDICARE -O/P [id number] 18 [id number] Problems, Conditions, and Diagnoses Code Display Name Description Problem Type Effective Dates Data Source(s) V43.1 Pseudophakia Pseudophakia Problem 05/06/2020 12:00:00 A M EST [facility] (Javi Connolly MD [facility]) 379.21 Vitreous Disorders Degeneration Vitreous Disorders Deg eneration Problem 04/07/2020 12:00:00 AM EST [facility] (Javi Connolly MD [facility]) 375.15 Dry Eye Syndrome Dry Eye Syndrome Problem 04/07/2020 12 :00:00 AM EST [facility] (Javi Connolly MD [facility]) 401.9 Essential Hypertension Essential Hypertension Problem 04/07/2020 12:00:00 AM EST [facility] (Javi Connolly MD [facility]) 366.15 Cataract Senile Cortical Cataract Senile Cortical Prob cheyanne 04/07/2020 12:00:00 AM EST [facility] (Javi Connolly MD [facility]) [id number] Macular Degeneration Nonexudative Bilate ral Early Dry Stage Macular Degeneration Nonexudative Bilateral Early Dry Stage Problem 12:00:00 AM EST [facility] (Javi Connolly MD [facility]) 379.21 Vitreous Disorders Degeneration Vitreous Disorders Deg eneration Problem 04/07/2020 12:00:00 AM EST [facility] (Javi Connolly MD [facility]) 375.15 Dry Eye Syndrome Dry Eye Syndrome Problem 04/07/2020 12 :00:00 AM EST [facility] (Javi Connolly MD [facility]) 401.9 Essential Hypertension Essential Hypertension Problem 04/07/2020 12:00:00 AM [facility] (Javi Connolly MD [facility]) 366.15 Cataract Senile Cortical Cataract Senile Cortical Prob cheyanne 04/07/2020 12:00:00 AM [facility] (Javi Connolly MD [facility]) [id number] Macular Degeneration Nonexudative Bilate ral Early Dry Stage Macular Degeneration Nonexudative Bilateral Early Dry Stage Problem 12:00:00 AM [facility] (Javi Connolly MD 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 M06.041 Rheumatoid arthritis without rheumatoid factor, right hand RHEUMATOID ARTHRITIS WITHOUT RHEUMATOID FACTOR, RIGHT HAND Diagnosis 2019 02:34:[address] [facility] M1990 Unspecified osteoarthritis, unspecified site Unspecified osteoarthritis, unspecified site Diagnosis 12/18/2019 09:08:00 AM [facility] N88374 Other intermodal customer service (current) drug therapy O ther snf (current) drug therapy Diagnosis 12/10/2019 09:25:00 AM [facility] Z23 Encounter for immunization ENCOUNTER FOR IMMUNIZATION Diagnosis 07/24/2019 09:17:00 AM [facility] Surgeries/Procedures Procedure Description Date Indications Data Source(s) Extraction of cataract (procedure) History of cataract extraction PCIOL OD by Dr. Cloud 05/04/2020 05/06/2020 12:00:00 AM [facility] Javi Connolly [facility]) OPH BMTRY PRTL COHER INTRFRMTRY IO LENS PWR CORDELL Ophtha lmic biometry - IOL Master with IOL calculation (26, LT) 05/06/2020 12:00:00 AM [facility] OPH BMTRY PRTL COHER INTRFRMTRY IO LENS PWR CORDELL Ophtha lmic biometry - IOL Master with IOL calculation (Right Side, WAIVER OF LIABILITY ON FILE (ABN)) 04/24/2020 12:00:00 AM EST [facility] (Javi Connolly MD [facility]) Intermediate Eye Exam Established Patient (Signi/Sep E clara. & Man.) Intermediate Eye Exam Established Patient (Signi/Sep Eval. & Man.) 04/24/2020 12:00:00 AM EST [facility] (Javi Connolly MD [facility]) Surgical / procedural history left Rota tor Cuff and left Bicep Tendon left 2015, Lump Removal side 2015 Lump Removal Neck 1995, Vasectomy, Tonsillectomy, Dental Implant Surgical / procedural history left Rota tor Cuff and left Bicep Tendon left 2015, Lump Removal side 2015 Lump Removal Neck 1995, Vasectomy, Tonsillectomy, Dental Implant 04/07/2020 12:00:00 AM EST ELIN (Javi Connolly MD [facility]) Medical Eye Exam Medical Eye Exam 04/07/2020 12:00:00 AM EST ELIN (Javi Connolly MD [facility]) Results ID Date Data Source [id number] 05/06/2020 10:00:00 AM EST [facility] Name Value Range Interpretation Code Description Data Pamela rce(s) Supporting Document(s) SARS coronavirus 2 RNA Not Detected [facility] [place] This lab was ordered by [facility] and reported by [facility]. ID Date Data Source [id number] 04/29/2020 12:00:00 PM EST [facility] Name Value Range Interpretation Code Description Data Pamela rce(s) Supporting Document(s) SARS coronavirus 2 RNA Not Detected [facility] [place] This lab was ordered by [facility] and reported by [facility]. ID Date Data Source [id number] 03/10/2020 12:30:00 PM EST [facility] Name Value Range Interpretation Code Description Data Pamela rce(s) Supporting Document(s) C reactive protein [Mass/volume] in Serum or Plasma by High sensitivity method 5.65 MG/L 1.00 - 3.00 H [facility] CDC/S HS-CRP CUT-OFF: RELATIVE RISK: <1.0 mg/L Low 1.0 - 3.0 mg/L Average >3.0 mg/L High Optimally, the average of HS-CRP results repeated two weeks apart should be used for risk assessment. ID Date Data Source [id number] 03/10/2020 12:30:00 PM EST [facility] Name Value Range Interpretation Code Description Data Pamela rce(s) Supporting Document(s) COMPREHENSIVE METABOLIC PANEL [facility] COMPREHENSIVE METABOLIC PANEL Sodium [Moles/volume] in Serum or Plasma 141 mEq/L 134 - 153 [facility] Potassium [Moles/volume] in Serum or Plasma 4.4 mEq/L 3.6 - 5.0 [facility] Chloride [Moles/volume] in Serum or Plasma 102 mEq/L 98 - 107 [facility] Carbon dioxide, total [Moles/volume] in Serum or Plasma 32 MEQ/L 22 - 30 H [facility] Glucose [Mass/volume] in Serum or Plasma 104 MG/DL 65 - 110 [facility] BUN 22 MG/DL 7 - 21 [facility] Creatinine [Mass/volume] in Serum or Plasma 1.2 MG/DL 0.7 - 1.5 [facility] BUN/CREAT 18 8 - 27 [facility] al Protein [Mass/volume] in Serum or Plasma 6.8 G/DL 6.3 - 8.2 [facility] Albumin [Mass/volume] in Serum or Plasma 4.5 G/DL 3.9 - 5.0 [facility] Globulin [Mass/volume] in Serum by calculation 2.3 GM/DL 2.4 - 3.2 L [facility] A/G RATIO 2.0 0.8 - 2.0 [facility] Calcium [Mass/volume] in Serum or Plasma 9.4 MG/DL 8.4 - 10.2 [facility] Bilirubin.total [Mass/volume] in Serum or Plasma <0.7 MG/DL 0.2 - 1.3 [facility] Alkaline phosphatase [Enzymatic activity/volume] in Serum or Plasma 57 U/L 38 - 126 [facility] Aspartate aminotransferase [Enzymatic activity/volume] in Serum or Plasma 19 U/L 5 - 40 [facility] Alanine aminotransferase [Enzymatic activity/volume] in Seru m or Plasma 13 U/L 7 - 56 [facility] Anion gap 3 in Serum or Plasma 7.0 mmol/L 8.0 - 16.0 L [facility] AGE 74 yrs [facility] NON-AA GFR >60 mL/min [facility] AFR AMER GFR >60 mL/min [facility] Male GFR In terprentation 20-49 yrs >60 mL/min Normal 50-59 yrs >56 mL/min Normal 60-69 yrs >49 mL/min Normal 70-79yrs >42 mL/min Normal 80 and above >35 mL/min Normal Female GFR Interpretation 20-39 yrs >60 mL/min Normal 40-49 yrs >58 mL/min Normal 50-59 yrs >51 mL/min Normal 60-69 yrs >45 mL/min Normal 70-79 yrs >39 mL/min Normal 80 and above >32 mL/min Normal ID Date Data Source [id number] 03/10/2020 12:02:00 PM EST [facility] Name Value Range Interpretation Code Description Data Pamela rce(s) Supporting Document(s) CBC W/AUTOMATED DIFF [facility] COMPLETE BLOOD COUNT Leukocytes [#/volume] in Blood by Automated count 7.8 10^3/uL 4.2 - 1 1.0 [facility] Erythrocytes [#/volume] in Blood by Automated count 4.20 10^6/uL 4. 50 - 6.30 L [facility] Hemoglobin [Mass/volume] in Blood 13.9 g/dL 14.0 - 16.0 L [facility] Hematocrit [Volume Fraction] of Blood by Automated count 41.2 % 4 1.0 - 51.0 [facility] Erythrocyte mean corpuscular volume [Entitic volume] by Auto mated count 98.1 fL 80.0 - 94.0 H [facility] Erythrocyte mean corpuscular hemoglobin [Entitic mass] by Automated count 33.1 pg 27.0 - 34.0 [facility] Erythrocyte mean corpuscular hemoglobin concentration [Mass/volume] by Automated count 33.7 g/dL 31.0 - 36.0 [facility] Erythrocyte distribution width [Ratio] by Automated count 12.8 % 11.5 - 14.8 [facility] Platelets [#/volume] in Blood by Automated count 255 10^3/uL 150 - 45 0 [facility] Platelet mean volume [Entitic volume] in Blood by Automated count 9.5 fL 7.4 - 10.4 [facility] Neutrophils/100 leukocytes in Blood by Automated count 63.8 % 37. 0 - 80.0 [facility] Lymphocytes/100 leukocytes in Blood by Manual count 19.9 % 25.0 - 40.0 L [facility] Monocytes/100 leukocytes in Blood by Automated count 11.3 % 3.0 - 8.0 H [facility] Eosinophils/100 leukocytes in Blood by Automated count 3.8 % 0.0 - 7.0 [facility] Basophils/100 leukocytes in Blood by Automated count 0.8 % 0.0 - 2.0 [facility] %IG 0.4 % 0.0 - 0.0 H [facility] %NRBC 0.0 % 0.0 - 0.0 [facility] al Neutrophils [#/volume] in Blood by Automated count 4.98 10^3/uL 2.00 - 6.90 [facility] Lymphocytes [#/volume] in Blood by Automated count 1.55 10^3/uL 0.60 - 3.40 [facility] Monocytes [#/volume] in Blood by Automated count 0.88 10^3/uL 0.00 - 0.90 [facility] Eosinophils [#/volume] in Blood by Automated count 0.30 10^3/uL 0.00 - 0.70 [facility] Basophils [#/volume] in Blood by Automated count 0.06 10^3/uL 0.00 - 0.20 [facility] #IG 0.03 10^3/uL 0.00 - 0.10 [facility] ospital #NRBC 0.00 10^3/uL 0.00 - 0.00 [facility] ospital MANUAL DIFF NOT INDICATED [facility] RBC MORPH NOT INDICATED [facility] spital ID Date Data Source [id number] 12/18/2019 09:56:00 AM EDT [facility] Name Value Range Interpretation Code Description Data Pamela rce(s) Supporting Document(s) BASIC METABOLIC PANEL [facility] BASIC METABOLIC PANEL Sodium [Moles/volume] in Serum or Plasma 138 mEq/L 134 - 153 [facility] Potassium [Moles/volume] in Serum or Plasma 4.2 mEq/L 3.6 - 5.0 [facility] Chloride [Moles/volume] in Serum or Plasma 102 mEq/L 98 - 107 [facility] Carbon dioxide, total [Moles/volume] in Serum or Plasma 28 MEQ/L 22 - 30 [facility] Glucose [Mass/volume] in Serum or Plasma 107 MG/DL 65 - 110 [facility] BUN 21 MG/DL 7 - 21 [facility] al Creatinine [Mass/volume] in Serum or Plasma 1.3 MG/DL 0.7 - 1.5 [facility] BUN/CREAT 16 8 - 27 [facility] Calcium [Mass/volume] in Serum or Plasma 9.2 MG/DL 8.4 - 10.2 [facility] Anion gap 3 in Serum or Plasma 8.0 mmol/L 8.0 - 16.0 [facility] AGE 73 yrs [facility] al AFR AMER GFR >60 mL/min [facility] NON-AA GFR 58 mL/min [facility] Male GFR Inter prentation 20-49 yrs >60 mL/min Normal 50-59 yrs >56 mL/min Normal 60-69 yrs >49 mL/min Normal 70-79yrs >42 mL/min Normal 80 and above >35 mL/min Normal Female GFR Interpretation 20-39 yrs >60 mL/min Normal 40-49 yrs >58 mL/min Normal 50-59 yrs >51 mL/min Normal 60-69 yrs >45 mL/min Normal 70-79 yrs >39 mL/min Normal 80 and above >32 mL/min Normal ID Date Data Source [id number] 12/10/2019 10:11:00 AM EDT [facility] Name Value Range Interpretation Code Description Data Pamela rce(s) Supporting Document(s) C reactive protein [Mass/volume] in Serum or Plasma by High sensitivity method 1.42 MG/L 1.00 - 3.00 [facility] CDC/S HS-CRP CUT-OFF: RELATIVE RISK: <1.0 mg/L Low 1.0 - 3.0 mg/L Average >3.0 mg/L High Optimally, the average of HS-CRP results repeated two weeks apart should be used for risk assessment. ID Date Data Source [id number] 12/10/2019 10:11:00 AM EDT [facility] Name Value Range Interpretation Code Description Data Pamela rce(s) Supporting Document(s) COMPREHENSIVE METABOLIC PANEL [facility] COMPREHENSIVE METABOLIC PANEL Sodium [Moles/volume] in Serum or Plasma 138 mEq/L 134 - 153 [facility] Potassium [Moles/volume] in Serum or Plasma 4.2 mEq/L 3.6 - 5.0 [facility] Chloride [Moles/volume] in Serum or Plasma 101 mEq/L 98 - 107 [facility] Carbon dioxide, total [Moles/volume] in Serum or Plasma 28 MEQ/L 22 - 30 [facility] Glucose [Mass/volume] in Serum or Plasma 102 MG/DL 65 - 110 [facility] BUN 32 MG/DL 7 - 21 [facility] Creatinine [Mass/volume] in Serum or Plasma 1.5 MG/DL 0.7 - 1.5 [facility] BUN/CREAT 21 8 - 27 [facility] al Protein [Mass/volume] in Serum or Plasma 7.1 G/DL 6.3 - 8.2 [facility] Albumin [Mass/volume] in Serum or Plasma 4.6 G/DL 3.9 - 5.0 [facility] Globulin [Mass/volume] in Serum by calculation 2.5 GM/DL 2.4 - 3.2 [facility] A/G RATIO 1.8 0.8 - 2.0 [facility] Calcium [Mass/volume] in Serum or Plasma 9.4 MG/DL 8.4 - 10.2 [facility] Bilirubin.total [Mass/volume] in Serum or Plasma <0.7 MG/DL 0.2 - 1.3 [facility] Alkaline phosphatase [Enzymatic activity/volume] in Serum or Plasma 54 U/L 38 - 126 [facility] Aspartate aminotransferase [Enzymatic activity/volume] in Serum or Plasma 19 U/L 5 - 40 [facility] Alanine aminotransferase [Enzymatic activity/volume] in Seru m or Plasma 16 U/L 7 - 56 [facility] Anion gap 3 in Serum or Plasma 9.0 mmol/L 8.0 - 16.0 [facility] AGE 73 yrs [facility] NON-AA GFR 49 mL/min [facility] AFR AMER GFR 59 mL/min [facility] Male GFR In terprentation 20-49 yrs >60 mL/min Normal 50-59 yrs >56 mL/min Normal 60-69 yrs >49 mL/min Normal 70-79yrs >42 mL/min Normal 80 and above >35 mL/min Normal Female GFR Interpretation 20-39 yrs >60 mL/min Normal 40-49 yrs >58 mL/min Normal 50-59 yrs >51 mL/min Normal 60-69 yrs >45 mL/min Normal 70-79 yrs >39 mL/min Normal 80 and above >32 mL/min Normal ID Date Data Source [id number] 12/10/2019 09:41:00 AM EDT [facility] Name Value Range Interpretation Code Description Data Pamela rce(s) Supporting Document(s) CBC W/AUTOMATED DIFF [facility] COMPLETE BLOOD COUNT Leukocytes [#/volume] in Blood by Automated count 8.3 10^3/uL 4.2 - 1 1.0 [facility] Erythrocytes [#/volume] in Blood by Automated count 4.03 10^6/uL 4. 50 - 6.30 L [facility] Hemoglobin [Mass/volume] in Blood 13.0 g/dL 14.0 - 16.0 L [facility] Hematocrit [Volume Fraction] of Blood by Automated count 39.3 % 4 1.0 - 51.0 L [facility] Erythrocyte mean corpuscular volume [Entitic volume] by Auto mated count 97.5 fL 80.0 - 94.0 H [facility] Erythrocyte mean corpuscular hemoglobin [Entitic mass] by Automated count 32.3 pg 27.0 - 34.0 [facility] Erythrocyte mean corpuscular hemoglobin concentration [Mass/volume] by Automated count 33.1 g/dL 31.0 - 36.0 [facility] Erythrocyte distribution width [Ratio] by Automated count 13.6 % 11.5 - 14.8 [facility] Platelets [#/volume] in Blood by Automated count 228 10^3/uL 150 - 45 0 [facility] Platelet mean volume [Entitic volume] in Blood by Automated count 8.4 fL 7.4 - 10.4 [facility] Neutrophils/100 leukocytes in Blood by Automated count 65.9 % 37. 0 - 80.0 [facility] Lymphocytes/100 leukocytes in Blood by Manual count 18.0 % 25.0 - 40.0 L [facility] Monocytes/100 leukocytes in Blood by Automated count 10.9 % 3.0 - 8.0 H [facility] Eosinophils/100 leukocytes in Blood by Automated count 3.9 % 0.0 - 7.0 [facility] Basophils/100 leukocytes in Blood by Automated count 0.6 % 0.0 - 2.0 [facility] %IG 0.7 % 0.0 - 0.0 [facility] %[facility] 0.0 % 0.0 - 0.0 [facility] al Neutrophils [#/volume] in Blood by Automated count 5.46 10^3/uL 2.00 - 6.90 [facility] Lymphocytes [#/volume] in Blood by Automated count 1.49 10^3/uL 0.60 - 3.40 [facility] Monocytes [#/volume] in Blood by Automated count 0.90 10^3/uL 0.00 - 0.90 [facility] Eosinophils [#/volume] in Blood by Automated count 0.32 10^3/uL 0.00 - 0.70 [facility] Basophils [#/volume] in Blood by Automated count 0.05 10^3/uL 0.00 - 0.20 [facility] #IG 0.06 10^3/uL 0.00 - 0.10 [facility] ospital #NRBC 0.00 10^3/uL 0.00 - 0.00 [facility] ospital MANUAL DIFF NOT INDICATED [facility] RBC MORPH NOT INDICATED [facility] spital ID Date Data Source [id number] 09/09/2019 11:13:00 AM EDT [facility] Name Value Range Interpretation Code Description Data Pamela rce(s) Supporting Document(s) COMPREHENSIVE METABOLIC PANEL [facility] COMPREHENSIVE METABOLIC PANEL Sodium [Moles/volume] in Serum or Plasma 138 mEq/L 134 - 153 [facility] Potassium [Moles/volume] in Serum or Plasma 4.2 mEq/L 3.6 - 5.0 [facility] Chloride [Moles/volume] in Serum or Plasma 104 mEq/L 98 - 107 [facility] Carbon dioxide, total [Moles/volume] in Serum or Plasma 27 MEQ/L 22 - 30 [facility] Glucose [Mass/volume] in Serum or Plasma 122 MG/DL 65 - 110 H [facility] BUN 25 MG/DL 7 - 21 H [facility] al Creatinine [Mass/volume] in Serum or Plasma 1.2 MG/DL 0.7 - 1.5 [facility] BUN/CREAT 21 8 - 27 [facility] Protein [Mass/volume] in Serum or Plasma 7.1 G/DL 6.3 - 8.2 [facility] Albumin [Mass/volume] in Serum or Plasma 4.4 G/DL 3.9 - 5.0 [facility] Globulin [Mass/volume] in Serum by calculation 2.7 GM/DL 2.4 - 3.2 [facility] A/G RATIO 1.6 0.8 - 2.0 [facility] Calcium [Mass/volume] in Serum or Plasma 9.6 MG/DL 8.4 - 10.2 [facility] Bilirubin.total [Mass/volume] in Serum or Plasma <0.7 MG/DL 0.2 - 1.3 [facility] Alkaline phosphatase [Enzymatic activity/volume] in Serum or Plasma 55 U/L 38 - 126 [facility] Aspartate aminotransferase [Enzymatic activity/volume] in Serum or Plasma 21 U/L 5 - 40 [facility] Alanine aminotransferase [Enzymatic activity/volume] in Seru m or Plasma 16 U/L 7 - 56 [facility] Anion gap 3 in Serum or Plasma 7.0 mmol/L 8.0 - 16.0 L [facility] AGE 73 yrs [facility] NON-AA GFR >60 mL/min [facility] ital AFR AMER GFR >60 mL/min [facility] Male GFR In terprentation 20-49 yrs >60 mL/min Normal 50-59 yrs >56 mL/min Normal 60-69 yrs >49 mL/min Normal 70-79yrs >42 mL/min Normal 80 and above >35 mL/min Normal Female GFR Interpretation 20-39 yrs >60 mL/min Normal 40-49 yrs >58 mL/min Normal 50-59 yrs >51 mL/min Normal 60-69 yrs >45 mL/min Normal 70-79 yrs >39 mL/min Normal 80 and above >32 mL/min Normal ID Date Data Source [id number] 09/09/2019 10:53:00 AM [facility] Name Value Range Interpretation Code Description Data Pamela rce(s) Supporting Document(s) C reactive protein [Mass/volume] in Serum or Plasma by High sensitivity method 1.53 MG/L 1.00 - 3.00 [facility] CDC/S HS-CRP CUT-OFF: RELATIVE RISK: <1.0 mg/L Low 1.0 - 3.0 mg/L Average >3.0 mg/L High Optimally, the average of HS-CRP results repeated two weeks apart should be used for risk assessment. ID Date Data Source [id number] 09/09/2019 10:18:00 AM [facility] Name Value Range Interpretation Code Description Data Pamela rce(s) Supporting Document(s) CBC W/AUTOMATED DIFF [facility] COMPLETE BLOOD COUNT Leukocytes [#/volume] in Blood by Automated count 6.7 10^3/uL 4.2 - 1 1.0 [facility] Erythrocytes [#/volume] in Blood by Automated count 4.39 10^6/uL 4. 50 - 6.30 L [facility] Hemoglobin [Mass/volume] in Blood 13.7 g/dL 14.0 - 16.0 L [facility] Hematocrit [Volume Fraction] of Blood by Automated count 41.3 % 4 1.0 - 51.0 [facility] Erythrocyte mean corpuscular volume [Entitic volume] by Auto mated count 94.1 fL 80.0 - 94.0 H [facility] Erythrocyte mean corpuscular hemoglobin [Entitic mass] by Automated count 31.2 pg 27.0 - 34.0 [facility] Erythrocyte mean corpuscular hemoglobin concentration [Mass/volume] by Automated count 33.2 g/dL 31.0 - 36.0 [facility] Erythrocyte distribution width [Ratio] by Automated count 12.1 % 11.5 - 14.8 [facility] Platelets [#/volume] in Blood by Automated count 240 10^3/uL 150 - 45 0 [facility] Platelet mean volume [Entitic volume] in Blood by Automated count 8.5 fL 7.4 - 10.4 [facility] Neutrophils/100 leukocytes in Blood by Automated count 63.9 % 37. 0 - 80.0 [facility] Lymphocytes/100 leukocytes in Blood by Manual count 20.8 % 25.0 - 40.0 L [facility] Monocytes/100 leukocytes in Blood by Automated count 10.0 % 3.0 - 8.0 H [facility] Eosinophils/100 leukocytes in Blood by Automated count 4.2 % 0.0 - 7.0 [facility] Basophils/100 leukocytes in Blood by Automated count 0.7 % 0.0 - 2.0 [facility] %IG 0.4 % 0.0 - 0.0 [facility] %NRBC 0.0 % 0.0 - 0.0 [facility] al Neutrophils [#/volume] in Blood by Automated count 4.29 10^3/uL 2.00 - 6.90 [facility] Lymphocytes [#/volume] in Blood by Automated count 1.40 10^3/uL 0.60 - 3.40 [facility] Monocytes [#/volume] in Blood by Automated count 0.67 10^3/uL 0.00 - 0.90 [facility] Eosinophils [#/volume] in Blood by Automated count 0.28 10^3/uL 0.00 - 0.70 [facility] Basophils [#/volume] in Blood by Automated count 0.05 10^3/uL 0.00 - 0.20 [facility] #IG 0.03 10^3/uL 0.00 - 0.10 [facility] ospital #NRBC 0.00 10^3/uL 0.00 - 0.00 [facility] ospital MANUAL DIFF NOT INDICATED [facility] RBC MORPH NOT INDICATED [facility] spital ID Date Data Source [id number] 05/02/2019 12:07:00 PM EST [facility] Name Value Range Interpretation Code Description Data Pamela rce(s) Supporting Document(s) COMPREHENSIVE METABOLIC PANEL [facility] COMPREHENSIVE METABOLIC PANEL Sodium [Moles/volume] in Serum or Plasma 142 mEq/L 134 - 153 [facility] Potassium [Moles/volume] in Serum or Plasma 4.5 mEq/L 3.6 - 5.0 [facility] Chloride [Moles/volume] in Serum or Plasma 103 mEq/L 98 - 107 [facility] Carbon dioxide, total [Moles/volume] in Serum or Plasma 28 MEQ/L 22 - 30 [facility] Glucose [Mass/volume] in Serum or Plasma 113 MG/DL 65 - 110 H [facility] BUN 31 MG/DL 7 - 21 H [facility] al Creatinine [Mass/volume] in Serum or Plasma 1.1 MG/DL 0.7 - 1.5 [facility] BUN/CREAT 28 8 - 27 H [facility] Protein [Mass/volume] in Serum or Plasma 6.9 G/DL 6.3 - 8.2 [facility] Albumin [Mass/volume] in Serum or Plasma 4.6 G/DL 3.9 - 5.0 [facility] Globulin [Mass/volume] in Serum by calculation 2.3 GM/DL 2.4 - 3.2 L [facility] A/G RATIO 2.0 0.8 - 2.0 [facility] Calcium [Mass/volume] in Serum or Plasma 9.7 MG/DL 8.4 - 10.2 [facility] Bilirubin.total [Mass/volume] in Serum or Plasma <0.7 MG/DL 0.2 - 1.3 [facility] Alkaline phosphatase [Enzymatic activity/volume] in Serum or Plasma 53 U/L 38 - 126 [facility] Aspartate aminotransferase [Enzymatic activity/volume] in Serum or Plasma 20 U/L 5 - 40 [facility] Alanine aminotransferase [Enzymatic activity/volume] in Seru m or Plasma 13 U/L 7 - 56 [facility] Anion gap 3 in Serum or Plasma 11.0 mmol/L 8.0 - 16.0 [facility] AGE 73 yrs [facility] NON-AA GFR >60 mL/min [facility] AFR AMER GFR >60 mL/min [facility] Male GFR In terprentation 20-49 yrs >60 mL/min Normal 50-59 yrs >56 mL/min Normal 60-69 yrs >49 mL/min Normal 70-79yrs >42 mL/min Normal 80 and above >35 mL/min Normal Female GFR Interpretation 20-39 yrs >60 mL/min Normal 40-49 yrs >58 mL/min Normal 50-59 yrs >51 mL/min Normal 60-69 yrs >45 mL/min Normal 70-79 yrs >39 mL/min Normal 80 and above >32 mL/min Normal ID Date Data Source [id number] 05/02/2019 12:01:00 PM [facility] Name Value Range Interpretation Code Description Data Pamela rce(s) Supporting Document(s) C reactive protein [Mass/volume] in Serum or Plasma by High sensitivity method 1.95 MG/L 1.00 - 3.00 [facility] CDC/S HS-CRP CUT-OFF: RELATIVE RISK: <1.0 mg/L Low 1.0 - 3.0 mg/L Average >3.0 mg/L High Optimally, the average of HS-CRP results repeated two weeks apart should be used for risk assessment. ID Date Data Source [id number] 05/02/2019 11:02:00 AM [facility] Name Value Range Interpretation Code Description Data Pamela rce(s) Supporting Document(s) CBC W/AUTOMATED DIFF [facility] COMPLETE BLOOD COUNT Leukocytes [#/volume] in Blood by Automated count 6.7 10^3/uL 4.2 - 1 1.0 [facility] Erythrocytes [#/volume] in Blood by Automated count 4.04 10^6/uL 4. 50 - 6.30 L [facility] Hemoglobin [Mass/volume] in Blood 13.0 g/dL 14.0 - 16.0 L [facility] Hematocrit [Volume Fraction] of Blood by Automated count 38.8 % 4 1.0 - 51.0 L [facility] Erythrocyte mean corpuscular volume [Entitic volume] by Auto mated count 96.0 fL 80.0 - 94.0 H [facility] Erythrocyte mean corpuscular hemoglobin [Entitic mass] by Automated count 32.2 pg 27.0 - 34.0 [facility] Erythrocyte mean corpuscular hemoglobin concentration [Mass/volume] by Automated count 33.5 g/dL 31.0 - 36.0 [facility] Erythrocyte distribution width [Ratio] by Automated count 13.2 % 11.5 - 14.8 [facility] Platelets [#/volume] in Blood by Automated count 218 10^3/uL 150 - 45 0 [facility] Platelet mean volume [Entitic volume] in Blood by Automated count 8.9 fL 7.4 - 10.4 [facility] Neutrophils/100 leukocytes in Blood by Automated count 60.6 % 37. 0 - 80.0 [facility] Lymphocytes/100 leukocytes in Blood by Manual count 22.2 % 25.0 - 40.0 L [facility] Monocytes/100 leukocytes in Blood by Automated count 11.2 % 3.0 - 8.0 H [facility] Eosinophils/100 leukocytes in Blood by Automated count 5.1 % 0.0 - 7.0 [facility] Basophils/100 leukocytes in Blood by Automated count 0.6 % 0.0 - 2.0 [facility] %IG 0.3 % 0.0 - 0.0 [facility] 0.0 % 0.0 - 0.0 [facility] al Neutrophils [#/volume] in Blood by Automated count 4.08 10^3/uL 2.00 - 6.90 [facility] Lymphocytes [#/volume] in Blood by Automated count 1.49 10^3/uL 0.60 - 3.40 [facility] Monocytes [#/volume] in Blood by Automated count 0.75 10^3/uL 0.00 - 0.90 [facility] Eosinophils [#/volume] in Blood by Automated count 0.34 10^3/uL 0.00 - 0.70 [facility] Basophils [#/volume] in Blood by Automated count 0.04 10^3/uL 0.00 - 0.20 [facility] #IG 0.02 10^3/uL 0.00 - 0.10 [facility] #NRBC 0.00 10^3/uL 0.00 - 0.00 [facility] MANUAL DIFF NOT INDICATED [facility] RBC MORPH NOT INDICATED [facility] Procedure Social History Code Duration Value Status Description Data Source(s ) Smoking 05/06/2020 09:24:38 AM EST Never smoked tobacco (liami ng) completed Never smoked tobacco (finding) ELIN (Javi Connolly MD [facility]) Smoking 04/07/2020 01:55:14 PM EST Never smoked tobacco (findi ng) completed Never smoked tobacco (finding) ELIN (Javi Connolly MD [facility]) Patient Treatment Plan of Care Planned Activity Planned Date Details Description Data Source (s) BromSite 0.075% Ophthalmic Solution 05/06/2020 12:00:00 AM EST ELIN (Javi Connolly MD [facility]) Inveltys 1% Ophthalmic Suspension 05/06/2020 12:00:00 AM EST ELIN (Javi Connolly MD [facility]) moxifloxacin 5 MG/ML Ophthalmic Solution 05/06/2020 12:00:00 AM EST ELIN (Javi Connolly MD [facility]) moxifloxacin 5 MG/ML Ophthalmic Solution 04/24/2020 12:00:00 AM EST [facility]IN (Javi Connolly MD [facility]) BromSite 0.075% Ophthalmic Solution 04/24/2020 12:00:00 AM EST ELIN (Javi Connolly MD [facility]) Inveltys 1% Ophthalmic Suspension 04/24/2020 12:00:00 AM EST ELIN (Javi Connolly MD [facility])
[2020-05-11] MEDS ORDERED: BSS IRR 500ML/OMIDRIA 4ML IRR BAG (OR ONLY) As Ordered ONE (12:20)
[2020-05-11] MEDS ORDERED: fentaNYL 100 MCG/2 ML INJECTION (J3010) As Ordered ONE (12:40)
[2020-05-11] MEDS ORDERED: MIDAZOLAM INJ 2MG/2ML VIAL (J2250 PER 1MG) As Ordered ONE (12:41)
[2020-05-11 13:10] VITALS: BP 149/66
--- NOTE | 2020-05-12 09:27 | RO ---
OPERATIVE NOTE DATE OF OPERATION: 05/11/2020 PREOPERATIVE DIAGNOSIS: 1. Visually significant dense nuclear sclerotic cataract, left eye. POSTOPERATIVE DIAGNOSIS: 1. Visually significant dense nuclear sclerotic cataract, left eye. PROCEDURE: 1. Extracapsular cataract extraction with insertion of intraocular lens, AU00T0, 19.5 D, left eye. SURGEON: Kang Cloud DO ANESTHESIA: Local (Omidria with MAC) COMPLICATIONS: None POSTOPERATIVE CONDITION: Stable INDICATIONS FOR SURGERY: 1. Blurred vision affecting patient's activities of daily living. DESCRIPTION OF PROCEDURE: The patient was seen in the preoperative area and properly identified. The correct operative eye was identified and marked. The patient received topical anesthetic, antibiotics, and topical dilating drops. The patient was then transferred to the operating room. The correct side was re-identified and a time-out was performed. The eye was prepped and draped in a sterile fashion. The eyelids were isolated with Tegaderm tape and the lids were held open with an adjustable speculum. A 1.0mm paracentesis incision was made. Omidria was then injected into the anterior chamber. Viscoelastic was then injected into the anterior chamber through the paracentesis. Using a 2.4mm sharp-tipped keratome, the anterior chamber was entered via a temporal clear cornea incision. A continuous curvilinear capsulorrhexis was created with Utrata forceps. Hydrodissection was performed with BSS on a blunt cannula until the nucleus was able to rotate freely. The crystalline lens was phacoemulsified and aspirated. Irrigation/aspiration was used to remove the cortical material Cohesive viscoelastic was placed into the capsular bag to deepen it. The implant was placed into the capsular bag and allowed to unfold. Placement was confirmed by visualizing the anterior capsulorrhexis. Irrigation/aspiration was used to remove the viscoelastic. The clear corneal incision was hydrated with BSS on a blunt cannula. The lens was well positioned. Intracameral antibiotic was injected into the anterior chamber. The incisions were then tested for leaks and found to be negative. The eye was then palpated for appropriate pressure and adjusted accordingly with BSS. The eyelid speculum was then carefully removed. A shield was placed over the eye. The patient tolerated the procedure well and was discharge to the recovery unit in a stable condition.
== END 2020-05-11 13:25 | disposition home or self-care (01) ==
LOC: M SDC 10:19
PROVIDERS: ATTEND Ophthalmology
DX: H25.12 Age-related nuclear cataract, left eye (principal); I10 Essential (primary) hypertension; K21.9 Gastro-esophageal reflux disease without esophagitis; Z86.73 Personal history of transient ischemic attack (TIA), and cerebral infarction without residual deficits; Z79.82 Long term (current) use of aspirin; Z79.899 Other long term (current) drug therapy
CPT/HCPCS: 66984; J1097; J2250; J3010; V2632

== ENCOUNTER → 2023-12-20 | Outpatient (REF) | payer MEDICARE ==
[~2023-12-20] MED LIST changes: -CEFUROXIME 1MG/0.1ML INTRACAMERAL INJ As Ordered ONE; -DUOVISC (0.50ML VISCOAT/0.55ML PROVISC) OPHTH KIT As Ordered ONE; -LIDOCAINE 1% MDV 20ML VIAL SQ PRN; -OFLOXACIN 0.3 % (OCUFLOX) OPTH SOL 5ML OS ONE; -PHENYLEPHRINE 2.5% OPHTH SOL 2ML OS ONE; -POVIDONE-IODINE 5% OPHTH PREP SOL 30ML As Ordered ONE; -PROPARACAINE 0.5% OPHTH SOL 15ML OS ONE; -TROPICAMIDE 1% OPHTH SOLN 2ML OS ONE
== END ==
LOC: M LAB REF 16:26
PROVIDERS: ATTEND Internal Medicine
DX: F03.90 Unspecified dementia, unspecified severity, without behavioral disturbance, psychotic disturbance, mood disturbance, and anxiety (principal)

== ENCOUNTER → 2023-12-30 | Outpatient (CLI) | payer MEDICARE | LOC: M RAD 12:17 | PROVIDERS: ATTEND Internal Medicine | DX: F03.90 Unspecified dementia, unspecified severity, without behavioral disturbance, psychotic disturbance, mood disturbance, and anxiety (principal) ==